=== PATIENT | female | born 1960 | race American Indian/Alaskan Native ===

== ENCOUNTER 2017-06-09 15:22 | Emergency (ER) | payer BC, OTHER ==
--- NOTE | 2017-06-09 15:52 | Emergency Department Report ---
Stated Complaint: N/V/D, DRY MOUTH Time Seen by Provider: 06/09/17 15:49 - HPI History of Present Illness: PT c/o diarrhea since yesterday. PT denies sick contacts - ROS Review of Systems: + dry mouth x 2 weeks ( pt states she saw her PCP for this two weeks ago and she was told to drink water and Gatoraid, so that is all the pt has been drinking for 2 weeks) + diarrhea - Exam Physical Exam: PT looks well, non toxic. gcs 15 abd soft and not tender MSE screening note: Focused history and physical exam performed. Due to findings the following was ordered: labs ED Disposition for MSE Condition: Stable
[2017-06-09 16:36] LABS: Alanine Aminotransferase 23 units/L (7-56); Albumin 4.1 g/dL (3.9-5); Albumin/Globulin Ratio 1.5 %; Alkaline Phosphatase 87 units/L (35-129); Anion Gap 18 mmol/L; Blood Urea Nitrogen 8 mg/dL (7-17); Calcium 9.1 mg/dL (8.4-10.2); Carbon Dioxide 23 mmol/L (22-30); Chloride 105.3 mmol/L (98-107); Glucose 87 mg/dL (65-100); Lipase 21 units/L (13-60); Sodium 142 mmol/L (137-145); Total Protein 6.9 g/dL (6.3-8.2)
[2017-06-09 16:38] LABS: Basophils % (Auto) 0.6 % (0.0-1.8); Eosinophils % (Auto) 3.1 % (0.0-4.3); Hematocrit 43.1 % (30.3-42.9); Hemoglobin 13.8 gm/dl (10.1-14.3); Mean Corpuscular HGB Conc 32 % (30-34); Mean Corpuscular Hemoglobin 29 pg (28-32); Mean Corpuscular Volume 91 fl (79-97); Platelet Count 276 K/mm3 (140-440); Red Blood Count 4.74 M/mm3 (3.65-5.03); Red Cell Distribution Width 13.9 % (13.2-15.2); White Blood Count 5.6 K/mm3 (4.5-11.0)
[2017-06-10] MEDS ORDERED: NACL 0.9% 1000 ML 1,000 ML IV ONE (01:20)
[2017-06-10] MEDS ORDERED: FLAGYL PO ONE (01:23)
--- NOTE | 2017-06-10 01:23 | Emergency Department Report ---
HPI - General Chief Complaint: Nausea/Vomiting/Diarrhea Time Seen by Provider: 06/09/17 15:49 - HPI HPI: Room 18 The patient is a 56-year-old female presenting with a chief complaint of diarrhea. Patient states her symptoms began yesterday evening approximately 1.5 hours after eating cereal with milk. Patient states she had approximately 6 episodes of loose watery stool. Patient denies abdominal pain, fever, nausea or vomiting. The patient does note she started a 10 day course of amoxicillin for sinus infection approximately 2 weeks ago. Location: The gastrointestinal system Duration: Constant since yesterday Quality: Painless Severity: Moderate Modifying factors: [see above] Context: [see above] Mode of transportation: [not driving] ED Past Medical Hx - Past Medical History Hx Hypertension: Yes (2004) Hx GERD: Yes Hx Arthritis: Yes Hx COPD: Yes - Surgical History Past Surgical History?: No Additional Surgical History: foot surgery, hysterectomy - Family History Family history: no significant - Social History Smoking Status: Current Every Day Smoker Substance Use Type: None (denies illicit drug use), Alcohol (occasional) - Medications Home Medications: Home Medications Medication Instructions Recorded Confirmed Last Taken Type Amlodipine Besylate/Benazepril 1 tab PO DAILY 09/09/13 09/09/13 09/09/13 History [Amlodipine-Benazepril 10-20 mg] Fluticasone/Salmeterol(Nf) [Advair 1 puff INHALATION BID 09/09/13 09/09/1309/09 History HFA 230-21 mcg] Ibuprofen [Ibuprofen] 1 tab PO PRN 09/09/13 09/09/13 09/09/13 History Mv,Ca,Min/Iron Fum/FA/Lyco/Lut 1 tab PO DAILY 09/09/13 09/09/13 09/09/13 History [Complete Multi Tablet] Oxycodone HCl/Acetaminophen 1 tab PO PRN 09/09/13 09/09/13 09/06/13 History [Oxycodone-Acetaminophen 5-325] Pantoprazole [Protonix TAB] 1 tab PO DAILY 09/09/13 09/09/13 09/09/13 History Solifenacin Succinate [Vesicare] 1 tab PO DAILY 09/09/13 09/09/13 09/09/13 History Ondansetron [Zofran Odt] 4 mg PO Q8HR PRN #20 tab.rapdis 06/10/17 Unknown Rx metroNIDAZOLE [Flagyl] 500 mg PO Q6H #40 tablet 06/10/17 Unknown Rx ED Review of Systems ROS: Stated complaint: N/V/D, DRY MOUTH Other details as noted in HPI Comment: All other systems reviewed and negative Constitutional: denies: chills, fever Eyes: denies: eye pain, eye discharge, vision change ENT: denies: ear pain, throat pain Respiratory: denies: cough, shortness of breath, wheezing Cardiovascular: denies: chest pain, palpitations Endocrine: no symptoms reported Gastrointestinal: diarrhea. denies: abdominal pain, nausea, vomiting Genitourinary: denies: urgency, dysuria, discharge Musculoskeletal: denies: back pain, joint swelling, arthralgia Skin: denies: rash, lesions Neurological: denies: headache, weakness, paresthesias Psychiatric: denies: anxiety, depression Hematological/Lymphatic: denies: easy bleeding, easy bruising Physical Exam - Physical Exam Vital Signs: Vital Signs 06/09/17 06/09/17 06/10/17 15:49 22:49 00:39 Temperature 98 F 97.5 F L 98.0 F Pulse Rate 84 87 80 Respiratory 16 18 20 Rate Blood Pressure 131/84 146/94 Blood Pressure 137/80 [Right] O2 Sat by Pulse 96 95 99 Oximetry Physical Exam: GENERAL: The patient is well-developed well-nourished female lying on stretcher not appearing to be in acute distress. [] HEENT: Normocephalic. Atraumatic. Extraocular motions are intact. NECK: Supple. Trachea midline CHEST/LUNGS: Clear to auscultation. There is no respiratory distress noted. HEART/CARDIOVASCULAR: Regular. There is no tachycardia. There is no gallop rub or murmur. ABDOMEN: Abdomen is soft, nontender. Patient has normal bowel sounds. There is no abdominal distention. SKIN: There is no rash. There is no edema. There is no diaphoresis. NEURO: The patient is awake, alert, and oriented. The patient is cooperative. The patient has normal speech MUSCULOSKELETAL: There is no evidence of acute injury. ED Course Vital Signs 06/09/17 06/09/17 06/10/17 15:49 22:49 00:39 Temperature 98 F 97.5 F L 98.0 F Pulse Rate 84 87 80 Respiratory 16 18 20 Rate Blood Pressure 131/84 146/94 Blood Pressure 137/80 [Right] O2 Sat by Pulse 96 95 99 Oximetry - Reevaluation(s) Reevaluation #1: 06/10/17 03:15 Patient states she still has not had diarrhea to provide a stool sample. ED Medical Decision Making - Lab Data Result diagrams: 06/09/17 16:04 06/09/17 16:04 - Differential Diagnosis C. difficile colitis, gastroenteritis, enteritis Critical care attestation.: If time is entered above; I have spent that time in minutes in the direct care of this critically ill patient, excluding procedure time. ED Disposition Clinical Impression: Diarrhea Disposition: DC-01 TO HOME OR SELFCARE Is pt being admited?: No Does the pt Need Aspirin: No Condition: Stable Instructions: Clostridium Difficile Infection (ED), Acute Diarrhea (ED), Infectious Colitis (ED) Additional Instructions: Return to the emergency department immediately should you develop worsening symptoms, fever, inability to tolerate food or liquid or any other concerns. Prescriptions: metroNIDAZOLE [Flagyl] 500 mg PO Q6H #40 tablet Ondansetron [Zofran Odt] 4 mg PO Q8HR PRN #20 tab.rapdis PRN Reason: Nausea Referrals: EMIR PEREZ JR, MD [Primary Care Provider] - 3-5 Days GANGA NOBLE MD [Staff Physician] - 3-5 Days (Dr. Noble is a network security administrator. Please follow up with him for further evaluation) Time of Disposition: 03:16
[2017-06-10 03:20] LABS: Bacteria,Urine 1+ /HPF (Negative); Bilirubin,Urine NEG (Negative); Blood,Urine SM (Negative); Ketones,Urine 20 mg/dL (Negative); Leukocyte Esterase,Urine SM (Negative); Mucus,Urine 1+ /HPF; Nitrite,Urine NEG (Negative); Protein,Urine <15 mg/dL mg/dL (Negative)
[2017-06-10 03:31] VITALS: BP 124/82
== END 2017-06-10 03:31 | disposition home or self-care (01) ==
LOC: ED 15:22
DX: R19.7 Diarrhea, unspecified (principal); I10 Essential (primary) hypertension; K21.9 Gastro-esophageal reflux disease without esophagitis; M19.90 Unspecified osteoarthritis, unspecified site; J44.9 Chronic obstructive pulmonary disease, unspecified
CPT/HCPCS: 36415; 80053; 81001; 83690; 85025; 96360; 99283; J7030